=== PATIENT | male | born 1980 | race Caucasian/White ===

== ENCOUNTER 2018-12-25 07:56 | Inpatient (IN) | payer OTHER ==
[~2018-12-25] VITALS: Ht 167.6 cm; Wt 94.5 kg
[2018-12-25] MEDS ORDERED: LORAZEPAM 2MG/ML CPJ IV STA (08:10)
[2018-12-25] MEDS ORDERED: CHLORDIAZEPOXIDE 25MG CAPSULE PO ONE (08:15)
[2018-12-25 08:39] LABS: BASOPHILS % 0.7 % (0.0-2.0); EOSINOPHILS % 1.6 % (0.0-5.0); HEMATOCRIT. 39.3 % (42.0-52.0); HEMOGLOBIN. 13.5 g/dL (14.0-18.0); LYMPHOCYTES % 20.7 % (20.0-50.0); MEAN CORPUSCULAR HEMOGLOBIN 31.5 pg (28.0-32.0); MEAN CORPUSCULAR VOLUME 91.7 fL (80.0-94.0); MONOCYTES % 5.2 % (2.0-8.0); NEUTROPHILS % 71.8 % (40.0-76.0); PLATELET 134 x1000/uL (130-400); RED BLOOD CELL COUNT 4.29 mill/uL (4.7-6.1); RED CELL DISTRIBUTION WIDTH 16.2 % (11.6-14.6)
[2018-12-25 08:45] LABS: CHLORIDE 88 mEq/L (98-107)
[2018-12-25 08:48] LABS: ETHANOL BLOOD 74 mg/dL
[2018-12-25] MEDS ORDERED: SODIUM CHLORIDE 0.9% 1,000 ML IV ONE (09:03)
[2018-12-25] MEDS ORDERED: LORAZEPAM 2MG/ML CPJ IV ONE (09:30)
[2018-12-25] MEDS ORDERED: DEXTROSE 50% WATER 50ML SYRINGE IV ONE (11:19)
[2018-12-25 11:50] VITALS: BP 130/68
[2018-12-25] MEDS ORDERED: CLONIDINE 0.1MG TABLET PO PRN (12:30)
[2018-12-25] MEDS ORDERED: ONDANSETRON HCL 4MG/2ML INJ IV PRN (12:30)
[2018-12-25] MEDS: LORAZEPAM 2MG/ML CPJ IV PRN ×2 (13:18→20:02)
[2018-12-25] MEDS ORDERED: POTASSIUM CHLORIDE INJ 40 MEQ in DEXT 5% WATER 500 ML IV SCH (14:00)
[2018-12-25] MEDS: MULTIVITAMINS,THER W-MINERALS TABLET PO SCH (14:39)
[2018-12-25] MEDS: THIAMINE HCL 100MG TABLET PO SCH (14:39)
[2018-12-25] MEDS: CHLORDIAZEPOXIDE 25MG CAPSULE PO SCH ×2 (14:39→21:46)
[2018-12-25] MEDS: DEXT 5%/0.45% NACL 1000ML 1,000 ML IV SCH ×2 (14:40→21:46)
[2018-12-25 16:00] VITALS: BP 116/80
[2018-12-25 20:00] VITALS: BP 129/82
[2018-12-26] VITALS: BP 127/85
[2018-12-26] MEDS: LORAZEPAM 2MG/ML CPJ IV PRN ×4 (03:00→22:41)
[2018-12-26] MEDS: CHLORDIAZEPOXIDE 25MG CAPSULE PO SCH ×3 (06:05→22:41)
[2018-12-26 06:28] LABS: BASOPHILS % 0.4 % (0.0-2.0); EOSINOPHILS % 1.8 % (0.0-5.0); HEMATOCRIT. 37.5 % (42.0-52.0); HEMOGLOBIN. 13.1 g/dL (14.0-18.0); LYMPHOCYTES % 24.5 % (20.0-50.0); MEAN CORPUSCULAR HEMOGLOBIN 31.6 pg (28.0-32.0); MEAN CORPUSCULAR VOLUME 90.6 fL (80.0-94.0); MEAN PLATELET VOLUME 8.4 fl (7.4-10.4); MONOCYTES % 4.4 % (2.0-8.0); NEUTROPHILS % 68.9 % (40.0-76.0); PLATELET 109 x1000/uL (130-400); RED BLOOD CELL COUNT 4.13 mill/uL (4.7-6.1); RED CELL DISTRIBUTION WIDTH 16.3 % (11.6-14.6)
[2018-12-26 06:30] LABS: CHLORIDE 96 mEq/L (98-107)
[2018-12-26 08:00] VITALS: BP 113/80
[2018-12-26] MEDS ORDERED: POTASSIUM CHLORIDE INJ 40 MEQ in DEXT 5% WATER 250 ML IV SCH (08:00)
[2018-12-26] MEDS: THIAMINE HCL 100MG TABLET PO SCH (08:12)
[2018-12-26] MEDS: MULTIVITAMINS,THER W-MINERALS TABLET PO SCH (08:12)
[2018-12-26] MEDS: DEXT 5%/0.45% NACL 1000ML 1,000 ML IV SCH ×2 (08:12→18:15)
[2018-12-26 12:00] VITALS: BP 124/79
[2018-12-26 16:00] VITALS: BP 136/85
[2018-12-26 20:00] VITALS: BP 121/81
[2018-12-27] MEDS ORDERED: ALPRAZOLAM 0.25 MG TABLET PO PRN (00:45)
[2018-12-27] MEDS: LORAZEPAM 2MG/ML CPJ IV PRN ×5 (03:02→20:40)
[2018-12-27] MEDS: DEXT 5%/0.45% NACL 1000ML 1,000 ML IV SCH ×2 (04:28→14:32)
[2018-12-27] MEDS: CHLORDIAZEPOXIDE 25MG CAPSULE PO SCH ×3 (05:48→21:10)
[2018-12-27 08:00] VITALS: BP 117/67
[2018-12-27] MEDS: MULTIVITAMINS,THER W-MINERALS TABLET PO SCH (09:01)
[2018-12-27] MEDS: THIAMINE HCL 100MG TABLET PO SCH (09:02)
[2018-12-27 14:54] LABS: CHLORIDE 100 mEq/L (98-107)
[2018-12-27] MEDS ORDERED: POTASSIUM CHLORIDE INJ 40 MEQ in DEXT 5%/0.9% NACL 1,000 ML IV SCH (15:45)
[2018-12-27] MEDS ORDERED: POTASSIUM CHLORIDE INJ 40 MEQ in DEXT 5% WATER 250 ML IV NR ×2 (17:00→21:00)
[2018-12-27 20:00] VITALS: BP 132/93
[2018-12-27 21:18] VITALS: BP 133/77
[2018-12-28] VITALS: BP 127/91
[2018-12-28] MEDS: DEXT 5%/0.45% NACL 1000ML 1,000 ML IV SCH ×3 (00:20→20:13)
[2018-12-28] MEDS: LORAZEPAM 2MG/ML CPJ IV PRN ×4 (00:31→18:15)
[2018-12-28 04:00] VITALS: BP 109/73
[2018-12-28] MEDS: CHLORDIAZEPOXIDE 25MG CAPSULE PO SCH ×3 (06:18→21:33)
[2018-12-28 08:00] VITALS: BP 114/67
[2018-12-28] MEDS: THIAMINE HCL 100MG TABLET PO SCH (08:48)
[2018-12-28] MEDS: MULTIVITAMINS,THER W-MINERALS TABLET PO SCH (08:49)
[2018-12-28 12:00] VITALS: BP 112/73
[2018-12-28 13:04] LABS: CHLORIDE 104 mEq/L (98-107)
[2018-12-28 16:00] VITALS: BP 116/90
[2018-12-28] MEDS ORDERED: POTASSIUM CHLORIDE 20MEQ TABLET SR PO NR (16:06)
[2018-12-28 20:00] VITALS: BP 121/80
[2018-12-28] MEDS: HYDROMORPHONE HCL/PF 2MG/ML CPJ IV PRN (20:01)
[2018-12-29] VITALS: BP 115/81
[2018-12-29] MEDS: LORAZEPAM 2MG/ML CPJ IV PRN ×2 (05:07→17:56)
[2018-12-29 05:09] VITALS: BP 131/83
[2018-12-29] MEDS: DEXT 5%/0.45% NACL 1000ML 1,000 ML IV SCH ×2 (06:09→17:45)
[2018-12-29] MEDS: HYDROMORPHONE HCL/PF 2MG/ML CPJ IV PRN ×3 (06:15→20:12)
[2018-12-29] MEDS: CHLORDIAZEPOXIDE 25MG CAPSULE PO SCH ×3 (06:41→23:00)
[2018-12-29 08:00] VITALS: BP 136/99
[2018-12-29 08:45] LABS: CHLORIDE 104 mEq/L (98-107)
[2018-12-29] MEDS: THIAMINE HCL 100MG TABLET PO SCH (09:00)
[2018-12-29] MEDS: MULTIVITAMINS,THER W-MINERALS TABLET PO SCH (09:00)
[2018-12-29 16:00] VITALS: BP 116/81
[2018-12-29 20:00] VITALS: BP 120/84
[2018-12-30] VITALS: BP 133/87
[2018-12-30] MEDS: HYDROMORPHONE HCL/PF 2MG/ML CPJ IV PRN ×3 (00:25→09:28)
[2018-12-30] MEDS: DEXT 5%/0.45% NACL 1000ML 1,000 ML IV SCH ×3 (02:56→20:13)
[2018-12-30 04:59] VITALS: BP 137/96
[2018-12-30] MEDS: CHLORDIAZEPOXIDE 25MG CAPSULE PO SCH ×2 (06:56→14:27)
[2018-12-30 08:08] VITALS: BP 131/85
[2018-12-30] MEDS: MULTIVITAMINS,THER W-MINERALS TABLET PO SCH (09:27)
[2018-12-30] MEDS: THIAMINE HCL 100MG TABLET PO SCH (09:27)
[2018-12-30 12:00] VITALS: BP 122/83
[2018-12-30] MEDS: LORAZEPAM 2MG/ML CPJ IV PRN ×2 (12:05→20:09)
[2018-12-30] MEDS: KETOROLAC 30MG/ML VIAL IV PRN ×2 (15:24→23:19)
[2018-12-30 16:00] VITALS: BP 126/84
[2018-12-30 20:00] VITALS: BP 127/82
[2018-12-31] VITALS: BP 132/77
[2018-12-31] MEDS: LORAZEPAM 2MG/ML CPJ IV PRN (00:07)
[2018-12-31] MEDS: DEXT 5%/0.45% NACL 1000ML 1,000 ML IV SCH (06:06)
== END 2018-12-31 07:00 | disposition left against medical advice (07) | DRG 641 ==
LOC: ER 07:56 → 5WST 09:46 → ENRESERV 10:49
PROVIDERS: ADMIT Hospitalist; ATTEND Hospitalist
DX: E87.1 Hypo-osmolality and hyponatremia (principal); F10.239 Alcohol dependence with withdrawal, unspecified; E87.6 Hypokalemia; Y90.9 Presence of alcohol in blood, level not specified; Z53.29 Procedure and treatment not carried out because of patient's decision for other reasons
CPT/HCPCS: 36415; 71045; 80048; 80320; 82962; 83735; 96374; 99285; C1893; J1170; J1885; J2060; J2405; J3480; J7030; J7060; G0480